=== PATIENT | female | born 1950 | race Caucasian/White ===

== ENCOUNTER 2018-04-16 09:26 | Day surgery (SDC) | payer OTHER ==
[~2018-04-16 09:26] MED LIST: ACIDOPHILUS1 EAC1 PO; AVAPRO150 MG PO; LANTUS SOL100 UNIT/1; LIPITOR20 MG PO; METFORMIN HCL500 MG PO; SYMBICORT 16010.2 GM IH; SYNTHROID50 MCG PO
== END 2018-04-16 17:25 | disposition home or self-care (01) ==
LOC: CIR.AMB
DX: S52.531S Colles' fracture of right radius, sequela (principal)